=== PATIENT | female | born 1985 | race Caucasian/White ===

== ENCOUNTER 2023-03-24 07:50 | Emergency (ER) | payer MEDICARE, OTHER ==
[2023-03-24] MEDS ORDERED: Ketorolac Tromethamine 60 MG/2 ML VIAL ONE (08:29)
[2023-03-24] MEDS ORDERED: Gabapentin 100 MG CAP PO SCH (09:15)
[2023-03-24] MEDS ORDERED: traMADol HCl 50 MG TAB ONE (09:31)
== END 2023-03-24 09:35 | disposition home or self-care (01) ==
LOC: NAV ERS 07:50
DX: S76.011A Strain of muscle, fascia and tendon of right hip, initial encounter (principal); M16.11 Unilateral primary osteoarthritis, right hip; F17.210 Nicotine dependence, cigarettes, uncomplicated; W18.30XA Fall on same level, unspecified, initial encounter
CPT/HCPCS: 72170; 96372; J1885

== ENCOUNTER 2023-06-14 19:43 | Emergency (ER) | payer OTHER ==
[2023-06-14] MEDS ORDERED: Acetaminophen 500 MG TAB ONE (20:52)
== END 2023-06-14 20:54 | disposition home or self-care (01) ==
LOC: NAV ERS 19:43
DX: S80.11XA Contusion of right lower leg, initial encounter (principal); F17.210 Nicotine dependence, cigarettes, uncomplicated; W01.10XA Fall on same level from slipping, tripping and stumbling with subsequent striking against unspecified object, initial encounter

== ENCOUNTER 2023-10-12 06:51 | Emergency (ER) | payer MEDICARE | END 2023-10-12 07:25 | disposition home or self-care (01) | LOC: NAV ERS 06:51 | DX: H60.502 Unspecified acute noninfective otitis externa, left ear (principal); F17.210 Nicotine dependence, cigarettes, uncomplicated | CPT/HCPCS: 99282 ==

== ENCOUNTER 2024-01-11 11:59 | Emergency (ER) | payer MEDICARE ==
[2024-01-11] MEDS ORDERED: Ketorolac Tromethamine 60 MG/2 ML VIAL ONE (12:27)
== END 2024-01-11 13:44 | disposition home or self-care (01) ==
LOC: NAV ERS 11:59
DX: S93.401A Sprain of unspecified ligament of right ankle, initial encounter (principal); S93.601A Unspecified sprain of right foot, initial encounter; F17.290 Nicotine dependence, other tobacco product, uncomplicated; W18.40XA Slipping, tripping and stumbling without falling, unspecified, initial encounter
CPT/HCPCS: 96372; J1885

== ENCOUNTER 2024-03-04 12:29 | Emergency (ER) | payer MEDICARE, OTHER ==
[2024-03-04] MEDS ORDERED: Ibuprofen 800 MG TAB ONE (13:40)
== END 2024-03-04 15:16 | disposition home or self-care (01) ==
LOC: NAV ERS 12:29
DX: S73.101A Unspecified sprain of right hip, initial encounter (principal); S43.401A Unspecified sprain of right shoulder joint, initial encounter; F17.290 Nicotine dependence, other tobacco product, uncomplicated; W19.XXXA Unspecified fall, initial encounter
CPT/HCPCS: 72170; 99283

== ENCOUNTER 2024-05-06 16:02 | Emergency (ER) | payer SELFPAY ==
[2024-05-06] MEDS ORDERED: Cyclobenzaprine 10 MG TAB ONE (16:39)
[2024-05-06] MEDS ORDERED: Ketorolac Tromethamine 60 MG/2 ML VIAL ONE (16:49)
== END 2024-05-06 16:55 | disposition home or self-care (01) ==
LOC: NAV ERS 16:02
DX: M43.6 Torticollis (principal); F17.290 Nicotine dependence, other tobacco product, uncomplicated
CPT/HCPCS: 96372; 99283; J1885

== ENCOUNTER 2024-05-07 06:03 | Emergency (ER) | payer SELFPAY ==
[2024-05-07] MEDS ORDERED: methylPREDNISolone Sod Succ/PF 125 MG/2 ML VIAL ONE (06:46)
[2024-05-07] MEDS ORDERED: fentaNYL 50 mcg/mL 1 mL Vial ONE (06:46)
[2024-05-07 06:51] LABS: #Basophils 0.1 thou/uL (0.0-0.2); #Eosinophils 0.3 thou/uL (0.0-0.7); #Lymphocytes 2.6 thou/uL (1.20-3.40); #Monocytes 1.1 thou/uL (0.11-0.59); #Neutrophils 8.2 thou/uL (1.40-6.50); %Eosinophils 2.7 % (0.0-10.0); %Lymphocytes 20.8 % (21.0-51.0); %Neutrophils 66.6 % (42.0-75.0); Hematocrit 40.8 % (36.0-47.0); Hemoglobin 12.8 g/dL (12.0-16.0); Mean Corpuscular HGB CONC 31.3 g/dL (32.0-36.0); Mean Corpuscular Volume 92.6 fl (78.0-98.0); Mean Platelet Volume 6.6 fL (7.4-10.4); Platelet Count 345 10x3/uL (130-400); RBC Distribution Width 12.3 % (11.5-14.5); White Blood Cell (WBC) Count 12.3 10x3/uL (4.8-10.8)
[2024-05-07] MEDS ORDERED: Ondansetron PF 4 MG/2 ML Vial ONE (07:02)
[2024-05-07 07:05] LABS: ALT (SGPT) 34 U/L (8-55); AST (SGOT) 22 U/L (5-34); Albumin 3.8 g/dL (3.5-5.0); Alkaline Phosphatase 86 U/L (40-110); Anion Gap 13 mmol/L (10-20); BUN (Urea Nitrogen) 10 mg/dL (7.0-18.7); Bilirubin, Total 0.4 mg/dL (0.2-1.2); Calc. Creatinine Clearance 0 mL/min (70-130); Calcium 9.1 mg/dL (7.8-10.44); Carbon Dioxide 21 mmol/L (22-29); Chloride 108 mmol/L (98-107); Estimated GFR 113; Globulin 3.8 g/dL (2.4-3.5); Glucose 113 mg/dL (70-105); Potassium 4.3 mmol/L (3.5-5.1); Protein, Total 7.6 g/dL (6.0-8.3); Sodium 138 mmol/L (136-145)
[2024-05-07] MEDS ORDERED: Iopamidol 370 76% 100 ML VIAL ONE (09:00)
== END 2024-05-07 09:12 | disposition short-term general hospital (02) ==
LOC: NAV ERS 06:03
DX: M54.12 Radiculopathy, cervical region (principal); F17.290 Nicotine dependence, other tobacco product, uncomplicated
CPT/HCPCS: 72127; 80053; 85025; 86140; 96374; 96375; J2405; J2919; J3010; Q9967

== ENCOUNTER 2025-04-09 12:44 | Emergency (ER) | payer MEDICARE, BC ==
[2025-04-09] MEDS ORDERED: Ibuprofen 800 MG TAB ONE (13:04)
== END 2025-04-09 14:12 ==
LOC: NAV ERS 12:44
DX: M25.521 Pain in right elbow (principal); M25.551 Pain in right hip; F41.9 Anxiety disorder, unspecified; F17.290 Nicotine dependence, other tobacco product, uncomplicated; W18.30XA Fall on same level, unspecified, initial encounter
CPT/HCPCS: 99283

== ENCOUNTER 2025-04-11 23:42 | Emergency (ER) | payer MEDICARE, BC ==
[2025-04-12] MEDS ORDERED: Ondansetron PF 4 MG/2 ML Vial ONE (00:16)
[2025-04-12 00:28] LABS: Hematocrit 45.2 % (36.0-47.0); Hemoglobin 15.3 g/dL (12.0-16.0); Mean Corpuscular Hemoglobin 30.5 pg (27.0-31.0); Mean Corpuscular Volume 90.0 fl (78.0-98.0); Platelet Count 324 10x3/uL (130-400); Red Blood Cell (RBC) Count 5.03 mill/uL (4.20-5.40); White Blood Cell (WBC) Count 18.1 10x3/uL (4.8-10.8)
[2025-04-12 00:29] LABS: INR-International Normal Ratio 1.0; Prothrombin Time 13.3 sec (12.0-14.7)
[2025-04-12 00:30] LABS: PTT 30.5 sec (22.9-36.1)
[2025-04-12 00:38] LABS: ALT (SGPT) 32 U/L (Less than 34); AST (SGOT) 27 U/L (11-34); Albumin 4.4 g/dL (3.1-4.5); Alkaline Phosphatase 90 U/L (40-110); Anion Gap 15 mmol/L (10-20); BUN (Urea Nitrogen) 4 mg/dL (7.0-18.7); Bilirubin, Total 0.5 mg/dL (0.3-1.2); Calc. Creatinine Clearance 0 mL/min (70-130); Calcium 9.3 mg/dL (7.8-10.44); Carbon Dioxide 24 mmol/L (22-29); Chloride 103 mmol/L (98-107); Globulin 3.3 g/dL (2.4-3.5); Glucose 77 mg/dL (70-105); Potassium 3.7 mmol/L (3.5-5.1); Sodium 138 mmol/L (136-145)
[2025-04-12 00:39] LABS: MDiff Complete? YES; Platelet Adequacy Comment Appears Adequate
== END 2025-04-12 01:25 | disposition short-term general hospital (02) ==
LOC: NAV ERS 23:42
DX: M79.661 Pain in right lower leg (principal); F17.290 Nicotine dependence, other tobacco product, uncomplicated
CPT/HCPCS: 80053; 85025; 85610; 85730; 96374; 96375; J2270; J2405; J3010